=== PATIENT | female | born 1970 | race African-American/Black ===

== ENCOUNTER 2017-07-15 09:54 | Inpatient (IN) | payer BC ==
[2017-07-15] MEDS ORDERED: Nitroglycerin 0.4 MG TAB (25 Tab Bottle) SL PRN (12:18)
[2017-07-15] MEDS ORDERED: Bisacodyl 5 MG TAB PO PRN (12:18)
[2017-07-15] MEDS ORDERED: Ondansetron HCl/PF 4 MG/2 ML Vial IVP PRN (12:18)
[2017-07-15] MEDS ORDERED: hydrALAZINE 20 MG/ML VIAL SLOW IVP PRN (12:18)
[2017-07-15] MEDS ORDERED: Senokot 8.6 MG TAB PO PRN (12:18)
[2017-07-15] MEDS ORDERED: traMADol HCl 50 MG TAB PO PRN (12:18)
[2017-07-15] MEDS ORDERED: Mag-Al 1200 mg/1200 mg/30 ML UDCUP PO PRN (12:18)
[2017-07-15] MEDS ORDERED: Benzonatate 100 MG CAP PO PRN (12:18)
[2017-07-15] MEDS ORDERED: cloNIDine 0.1 MG TAB PO PRN (12:18)
[2017-07-15] MEDS ORDERED: Calcium Carbonate 500 MG ChewTAB PO PRN (12:18)
[2017-07-15 12:37] VITALS: BMI 45.7
[2017-07-15] MEDS: Sodium Chloride 0.9% 1,000 ML IV SCH (13:33)
[2017-07-15 13:35] LABS: Hemoglobin A1c 5.3 % (4.0-6.0)
[2017-07-15 13:56] LABS: Free T3 2.06 pg/mL (1.71-3.71)
--- NOTE | 2017-07-15 14:59 | HP ---
DATE OF ADMISSION: 07/15/2017 PRIMARY CARE PHYSICIAN: None. The patient does not have any insurance CHIEF COMPLAINT: Cough, fever, and shortness of breath. HISTORY OF PRESENT ILLNESS: Ms. Walters is a 47-year-old female with past medical history of hyperte nsion, dyslipidemia, and possible diabetes, who presented to the emergency room in [place] the a radha-mentioned complaints. History is mainly obtained by the patient herself. According to Ms. Walters, she was feeling fine up until 3 days ago. Three days ago, she started to h ave some sore throat, which resolved the next day and she felt better. Later that day, she actually got worse and started to have low grade fever, shortness of breath, chest tightness, and generalized malaise, and cough. Her symptoms did not get better at all yesterday, so she presented to the ER tod ay. Upon presentation, she was febrile with a fever of 101.4 and pulse of 135. Her Influenza testing was negative. She underwent a chest x-ray, which was concerning for some pneumonia. She also was found to have elevated D-dimer and for this reason, she underwent a CT angio, which confirmed the diagnosi s of goff-lobar pneumonia. She received azithromycin and Rocephin as well as 2 liters of IV fluids an d was transferred to our facility for further evaluation. Here, she was evaluated by our emergency r oom physician and is now being admitted for severe multifocal pneumonia. At the time of my examination, the patient is feeling somewhat better. Her family is at bedside. She denies any sick contacts. She denies any nausea, vomiting, and abdominal pain. She does have so me loose stools since yesterday. She has lost some weight as she has been trying through diet and ot her methods. She denies any orthopnea or PND. She denies any water retention. She denies any dysur ia, frequency, or urgency. She is currently off of all of her medications. She lost her insurance and has just gotten it back. PAST MEDICAL HISTORY: 1. Hypertension. 2. Dyslipidemia. 3. Iron deficiency anemia. PAST SURGICAL HISTORY: section x2. SOCIAL HISTORY: She is working two jobs currently. No history of drug, tobacco, or alcohol abuse. Lives with her family. FAMILY HISTORY: Significant for diabetes in both of her parents. One of her grandfathers had prosta te cancer. One of her grandmothers had stomach cancer as well as lymphoma and cervical cancer. One of her grandmothers had a heart attack at the age of 65. ALLERGIES: No known medication allergies. MEDICATIONS: No known home medication. REVIEW OF SYSTEMS: The following complete review of systems was negative, unless otherwise mentioned in the HPI or below: Constitutional: Weight loss or gain, ability to conduct usual activities. Skin: Rash, itching. Eyes: Double vision, pain. ENT/Mouth: Nose bleeding, neck stiffness, pain, tenderness. Cardiovascular: Palpitations, dyspnea on exertion, orthopnea. Respiratory: Shortness of breath, wheezing, cough, hemoptysis, fever or night sweats. Gastrointestinal: Poor appetite, abdominal pain, heartburn, nausea, vomiting, constipation, or diarrh ea. Genitourinary: Urgency, frequency, dysuria, nocturia. Musculoskeletal: Pain, swelling. Neurologic/Psychiatric: Anxiety, depression. Allergy/Immunologic: Skin rash, bleeding tendency. LABORATORY DATA: Reviewed from [place] [facility]. Her hemoglobin is 9.3 with hematocrit o f 29.7, low MCV and MCH. WBCs 8.8 with 91% neutrophils, platelet count of 206. D-dimer was 2.98. S nae chemistries show blood sugar of 134, bicarbonate 19, and lactic acid normal. Cardiac enzymes ar e within normal limits. Her TSH is low at 0.1123. Urinalysis is unremarkable. Chest x-ray showed m ulti-lobar pneumonia by my review without any evidence of significant effusion or pulmonary edema. C T angio is negative for any pulmonary embolism. A normal 12-lead EKG by my review shows sinus tachyc ardia without any specific ST or T-wave changes. PHYSICAL EXAMINATION: VITAL SIGNS: Include temperature 98.1, pulse of 109, respirations 19, saturating 98% on room air, bl ood pressure 134/100. Her temperature on presentation to [place] [facility] was 101.4 degre es. GENERAL: No acute distress, awake, alert, oriented x3, very pleasant. No respiratory distress. HEENT: Mucous membrane is moist and pink. No oropharyngeal exudate or erythema. Head is normocepha lic, atraumatic. Pupils equal, reactive to light and accommodation. Extraocular movements intact. NECK: Supple without any lymphadenopathy, JVD or bruit. CHEST: Clear to auscultation without any wheezing, rales, or rhonchi. Rate and rhythm is regular wi thout any murmur, rubs or gallops. ABDOMEN: Soft, nontender, nondistended with positive bowel sounds. EXTREMITIES: Free of any cyanosis, clubbing, or edema. NEUROLOGIC: Nonfocal. SKIN: Free of any rashes or bruises. Feels warm and dry to touch. PSYCHIATRIC: Normal affect. IMPRESSION AND PLAN: 1. Sepsis secondary to pneumonia. At this time, the patient will be admitted to telemetry unit, [facility] en her tachycardia. We will continue with the treatment for sepsis protocol with IV fluids and appro priate IV antibiotics for community-acquired pneumonia. Provide symptomatic and supportive care and monitor symptoms clinically. Blood cultures have been obtained at the outside emergency room and we will follow those. We will also send urinary legionella and pneumococcal antigens. 2. Pneumonia as #1. Continue to treat with IV antibiotics and follow up on the culture results. We will add nebulizers and supportive care in the form of Mucinex and antitussive as needed. 3. Low TSH, possible hyperthyroidism. We will check a free T3 and T4. She had one lab drawn in Jul of this year, which was normal. She is currently not on any medications. She has not had any t hyroid workup so far. 5. Iron deficiency anemia. We will check iron indices and transfuse IV iron if indicated. She has no active bleed going on. 6. Family history of diabetes. We will check hemoglobin A1c. Add insulin sliding scale for hypergl ycemia for now. 7. Health maintenance. Check lipid panel and hemoglobin A1c as above. 8. Deep venous thrombosis and gastrointestinal prophylaxis. 9. Symptomatic and supportive care and p.r.n. medications. DISPOSITION: Ms. Walters is currently being admitted for sepsis secondary to pneumonia. Further man agement will depend upon her clinical course. Estimated length of stay at this time is 2-3 midnight.
[2017-07-15] MEDS: Acetaminophen 325 MG TAB PO PRN (15:18)
[2017-07-15 18:12] LABS: LegU Control Bar Appear? YES (CONTROL BAR); LegionellaU Control Bkground? CLEAR/WHITE (CLR/WHITE); Strp pneuU Control Background? CLEAR/WHITE (CLR/WHITE); Strp pneumo Control Bar Appear YES (CONTROL BAR)
[2017-07-15] MEDS ORDERED: FLU VACC QS2017-18 36 mo. & older 0.5 ML SYRINGE IM ONE (21:00)
[2017-07-15] MEDS: Famotidine 20 MG TAB PO SCH (21:13)
[2017-07-15] MEDS: Diabetic Tussin 200 MG/10 ML UDCUP PO PRN (21:13)
[2017-07-16] MEDS: Sodium Chloride 0.9% 1,000 ML IV SCH ×2 (00:49→13:58)
[2017-07-16 05:29] LABS: #Eosinphils 0.1 thou/uL (0.0-0.7); #Lymphocytes 1.3 thou/uL (1.20-3.40); #Monocytes 0.4 thou/uL (0.11-0.59); #Neutrophils 6.2 thou/uL (1.40-6.50); %Eosinophils 1.7 % (0.0-10.0); %Monocytes 4.4 % (0.0-10.0); Hematocrit 26.4 % (36.0-47.0); Mean Platelet Volume 10.4 fL (7.4-10.4); Red Blood Cell (RBC) Count 3.37 mill/uL (4.20-5.40); White Blood Cell (WBC) Count 7.9 thou/uL (4.8-10.8)
[2017-07-16 05:59] LABS: Anion Gap 10 mmol/L (10-20); BUN (Urea Nitrogen) 7 mg/dL (7.0-18.7); Calc. Creatinine Clearance 212 mL/min (70-130); Calcium 8.7 mg/dL (7.8-10.44); Carbon Dioxide 23 mmol/L (22-29); Chloride 110 mmol/L (98-107); Estimated GFR-MDRD Greater than 90
[2017-07-16] MEDS: Acetaminophen 325 MG TAB PO PRN (07:43)
[2017-07-16] MEDS: Loratadine 10 MG TAB PO PRN (07:43)
[2017-07-16] MEDS: Diabetic Tussin 200 MG/10 ML UDCUP PO PRN ×2 (07:45→15:12)
[2017-07-16] MEDS: Famotidine 20 MG TAB PO SCH ×2 (08:57→20:48)
[2017-07-16] MEDS: Enoxaparin Sodium 40 MG/0.4 ML SYRINGE SC SCH (08:57)
[2017-07-16] MEDS ORDERED: IRON SUCROSE COMPLEX 100 MG/5 ML SLOW IVP SCH (09:15)
[2017-07-16] MEDS ORDERED: Iron Sucrose Complex 200 MG in Sodium Chloride 0.9% 250 ML 250 ML IVPB SCH (09:30)
[2017-07-16] MEDS: Metoprolol Tartrate 25 MG TAB PO SCH ×2 (09:53→20:48)
--- NOTE | 2017-07-16 12:35 | PDOC.PN ---
- Subjective Encounter Start Date: 07/16/17 Encounter Start Time: 12:33 Subjective: feels much better. walked in hallways w some RAPHAEL -: no chest pain/plapitations - Objective MAR Reviewed: Yes Vital Signs & Weight: Vital Signs (12 hours) Temp Pulse Resp BP BP Pulse Ox 07/16/17 11:00 98.3 F 79 18 142/80 H 98 07/16/17 08:00 98.6 F 107 H 18 07/16/17 04:00 98.6 F 107 H 18 188/97 H 93 L Weight Weight 267 lb 11.2 oz I&O: 07/15/17 07/16/17 07/17/17 06:59 06:59 06:59 Intake Total 3000 Output Total 640 Balance 2360 Result Diagrams: 07/16/17 04:44 07/16/17 04:44 Additional Labs: Microbiology 07/15/17 06:40 Nasal swab Influenza Types A,B Direct EIA - Final 01/17/13 Unknown Nasal swab MRSA Screen - Final Negative--No MRSA Colonization 07/15/17 06:50 Venous blood - Left Arm Blood Culture - Preliminary Specimen has been received and culture in progress. No Growth to date. Laboratory Tests 07/15/17 07/15/17 07/15/17 10:09 10:09 10:09 Hemoglobin A1c 5.3 Iron 11 L TIBC 328 % Saturation 3 L Triglycerides 29 Cholesterol 129 LDL Cholesterol, Calc 71 HDL Cholesterol 52 Free T4 1.08 Free T3 2.06 TSH 3rd Generation Ur L.pneumophila Ag Ur Strep pneumoniae Ag 07/15/17 07/15/17 07/15/17 10:14 17:45 17:45 Hemoglobin A1c Iron TIBC % Saturation Triglycerides Cholesterol LDL Cholesterol, Calc HDL Cholesterol Free T4 Free T3 TSH 3rd Generation 0.1123 L Ur L.pneumophila Ag Negative Ur Strep pneumoniae Ag NEGATIVE Phys Exam - Physical Examination Constitutional: NAD HEENT: PERRLA, moist MMs, sclera anicteric, oral pharynx no lesions Neck: no nodes, no JVD, supple, full ROM Respiratory: no wheezing, no rales, no rhonchi, clear to auscultation bilateral Cardiovascular: RRR, no significant murmur, no rub, gallop Gastrointestinal: soft, non-tender, no distention, positive bowel sounds Musculoskeletal: no edema, pulses present Neurological: non-focal, normal sensation, moves all 4 limbs Psychiatric: normal affect, A&O x 3 Skin: no rash Dx/Plan (1) Sepsis Code(s): A41.9 - SEPSIS, UNSPECIFIED ORGANISM Status: Acute (2) CAP (community acquired pneumonia) Code(s): J18.9 - PNEUMONIA, UNSPECIFIED ORGANISM Status: Acute (3) GLORIA (iron deficiency anemia) Code(s): D50.9 - IRON DEFICIENCY ANEMIA, UNSPECIFIED Status: Chronic Qualifiers: Iron deficiency anemia type: inadequate dietary iron intake Qualified Code( s): D50.8 - Other iron deficiency anemias (4) Sinus tachycardia Code(s): R00.0 - TACHYCARDIA, UNSPECIFIED Status: Acute (5) HTN (hypertension) Code(s): I10 - ESSENTIAL (PRIMARY) HYPERTENSION Status: Chronic Qualifiers: Hypertension type: essential hypertension Qualified Code(s): I10 - Essential (primary) hypertension Comment: Start Beta catie and titrate . (6) Obesity, morbid, BMI 40.0-49.9 Code(s): E66.01 - MORBID (SEVERE) OBESITY DUE TO EXCESS CALORIES Status: Chronic (7) Hypokalemia Code(s): E87.6 - HYPOKALEMIA Status: Acute Comment: replace and recheck - Plan continue antibiotics, PT/OT, social service manager, respiratory therapy, incentive spirometry, out of bed/ambulate, DVT proph w/lovenox IV iron today & then start PO FeSO4.no active bleed.nutritional deficiency -: check ECHO given persistant taycardia.likley d/t anemia.? LVH -: Hb A1c Ok-no DM.Free T3/T4 ok even though TSH low.No Rx for now.Op w/u -: cont IV ABx. follow blood Cx.clinically better. -: cont supportive care. IVF.Nebs,mucinex,IS.AM labs * . Review of Systems - Review of Systems Constitutional: weakness, malaise. negative: fever, chills, sweats, other ENT: negative: Ear Pain, Ear Discharge, Nose Pain, Nose Discharge, Nose Congestion, Mouth Pain, Mouth Swelling, Throat Pain, Throat Swelling, Other Respiratory: Cough, SOB with Excertion, Sputum. negative: Dry, Shortness of Breath, Hemoptysis, Pleuritic Pain, Wheezing Cardiovascular: negative: chest pain, palpitations, orthopnea, paroxysmal nocturnal dyspnea, edema, light headedness, other Gastrointestinal: negative: Nausea, Vomiting, Abdominal Pain, Diarrhea, Constipation, Melena, Hematochezia, Other Genitourinary: negative: Dysuria, Frequency, Incontinence, Hematuria, Retention , Other Musculoskeletal: negative: Neck Pain, Shoulder Pain, Arm Pain, Back Pain, Hand Pain, Leg Pain, Foot Pain, Other Neurological: negative: Weakness, Numbness, Incoordination, Change in Speech, Confusion, Seizures, Other - Medications/Allergies Allergies/Adverse Reactions: Allergies Allergy/AdvReac Type Severity Reaction Status Date / Time No Known Allergies Allergy Verified 01/17/13 23:46 Medications: Current Medications Acetaminophen (Tylenol) 650 mg PO Q4H PRN PRN Reason: Headache/Fever or Pain Last Admin: 07/16/17 07:43 Dose: 650 mg Hydrocodone Bitart/Acetaminophen (Lennox 5/325) 1 tab PO Q4H PRN PRN Reason: Moderate Pain (4-6) Al Hydroxide/Mg Hydroxide (Maalox) 30 ml PO Q6H PRN PRN Reason: Heartburn or Indigestion Albuterol/Ipratropium (Duoneb) 3 ml NEB [id number] PRN PRN Reason: SOB &/or Wheezing Benzonatate (Tessalon) 100 mg PO Q4H PRN PRN Reason: Cough Bisacodyl (Dulcolax) 10 mg PO DAILYPRN PRN PRN Reason: Constipation Calcium Carbonate (Tums) 1,000 mg PO Q4H PRN PRN Reason: Heartburn or Indigestion Clonidine (Catapres) 0.1 mg PO Q4H PRN PRN Reason: Systolic BP > 160 Enoxaparin Sodium (Lovenox) 40 mg SC 0900 [facility] Last Admin: 07/16/17 08:57 Dose: 40 mg Famotidine (Pepcid) 20 mg PO BID [facility] Last Admin: 07/16/17 08:57 Dose: 20 mg Ferrous Sulfate ([facility]osol) [facility] Guaifenesin (Robitussin Sf) 200 mg PO Q4H PRN PRN Reason: Cough Last Admin: 07/16/17 07:45 Dose: 200 mg Hydralazine HCl (Apresoline) 10 mg SLOW IVP Q4H PRN PRN Reason: Systolic BP > 170 Azithromycin 500 mg/ Sodium (Chloride) 250 mls @ 250 mls/hr IVPB Q24HR [facility] Ceftriaxone Sodium 2 gm/ (Sodium Chloride) 100 mls @ 200 mls/hr IVPB Q24HR [facility] Sodium Chloride (Normal Saline 0.9%) 1,000 mls @ 100 mls/hr IV .Q10H [facility] Last Admin: 07/16/17 00:49 Dose: 1,000 mls Iron Sucrose 200 mg/ Sodium (Chloride) 260 mls @ 65 mls/hr IVPB 0930 [facility] Stop: 07/16/17 13:29 Last Admin: 07/16/17 10:20 Dose: 260 mls Loratadine (Claritin) 10 mg PO DAILYPRN PRN PRN Reason: Sinus Symptoms Last Admin: 07/16/17 07:43 Dose: 10 mg Metoprolol Tartrate (Lopressor) 12.5 mg PO BID [facility] Last Admin: 07/16/17 09:53 Dose: 12.5 mg Nitroglycerin (Nitrostat) 0.4 mg SL Q5MIN PRN PRN Reason: Chest Pain Ondansetron HCl (Zofran) 4 mg IVP Q6H PRN PRN Reason: Nausea/Vomiting Senna (Senokot) 2 tab PO HSPRN PRN PRN Reason: Constipation Tramadol HCl (Ultram) 50 mg PO Q4H PRN PRN Reason: Moderate Pain (4-6)
[2017-07-16] MEDS: cefTRIAXone\\ROCEPHIN 2 GM in Sodium Chloride 0.9% 100 ML IVPB SCH (13:57)
[2017-07-16] MEDS: Azithromycin 500 MG in Sodium Chloride 0.9% 250 ML 250 ML IVPB SCH (15:01)
[2017-07-16] MEDS: Ferrous Sulfate 325 MG TAB PO SCH (16:58)
[2017-07-17] MEDS: Acetaminophen 325 MG TAB PO PRN (02:35)
[2017-07-17] MEDS: Sodium Chloride 0.9% 1,000 ML IV SCH ×3 (02:37→17:01)
[2017-07-17 05:24] LABS: Anion Gap 11 mmol/L (10-20); BUN (Urea Nitrogen) 8 mg/dL (7.0-18.7); Calc. Creatinine Clearance 222 mL/min (70-130); Calcium 8.5 mg/dL (7.8-10.44); Carbon Dioxide 21 mmol/L (22-29); Chloride 110 mmol/L (98-107); Estimated GFR-MDRD Greater than 90
[2017-07-17] MEDS: Ferrous Sulfate 325 MG TAB PO SCH ×2 (08:42→17:00)
[2017-07-17] MEDS: Famotidine 20 MG TAB PO SCH ×2 (08:42→21:36)
[2017-07-17] MEDS: Metoprolol Tartrate 25 MG TAB PO SCH ×2 (08:42→21:37)
[2017-07-17] MEDS: Enoxaparin Sodium 40 MG/0.4 ML SYRINGE SC SCH (08:43)
[2017-07-17] MEDS: Loratadine 10 MG TAB PO PRN (08:45)
[2017-07-17] MEDS: Diabetic Tussin 200 MG/10 ML UDCUP PO PRN ×2 (08:45→17:00)
[2017-07-17] MEDS: cefTRIAXone\\ROCEPHIN 2 GM in Sodium Chloride 0.9% 100 ML IVPB SCH (12:55)
--- NOTE | 2017-07-17 13:09 | PDOC.PN ---
- Subjective Encounter Start Date: 07/17/17 Encounter Start Time: 13:09 -: non-verbal, old records requested/rev Subjective: Pt seen and examined for Community acquired pneumonia, Iron Defeciency Anem -: Pt feels SOB on exertion, No fever , no N/V/D, no active bleeding - Objective MAR Reviewed: Yes Vital Signs & Weight: Vital Signs (12 hours) Temp Pulse Resp BP BP Pulse Ox 07/17/17 11:29 97.8 F 84 18 99 07/17/17 08:00 98.0 F 91 17 152/98 H 99 07/17/17 04:35 98.7 F 99 18 169/83 H 97 Weight Weight 266 lb 14.4 oz I&O: 07/16/17 07/17/17 07/18/17 06:59 06:59 06:59 Intake Total 3000 4214 Output Total 640 1000 Balance 2360 3214 Result Diagrams: 07/16/17 04:44 07/17/17 04:42 Radiology Reviewed by me: Yes Phys Exam - Physical Examination HEENT: PERRLA, moist MMs, sclera anicteric, TM's clear, oral pharynx no lesions , 2+ tonsils Neck: no nodes, no JVD, supple, full ROM Respiratory: no wheezing, no rales (few crackles left lower lobe), no rhonchi, wheezing present, clear to auscultation bilateral Cardiovascular: RRR, no significant murmur, no rub, gallop, irregular Gastrointestinal: soft, non-tender, no distention, positive bowel sounds Musculoskeletal: no edema, pulses present, edema present Neurological: non-focal, normal sensation, moves all 4 limbs Psychiatric: normal affect, A&O x 3 Skin: no rash, normal turgor, cap refill <2 seconds Dx/Plan (1) CAP (community acquired pneumonia) Code(s): J18.9 - PNEUMONIA, UNSPECIFIED ORGANISM Status: Acute (2) Hypokalemia Code(s): E87.6 - HYPOKALEMIA Status: Acute Comment: replace and recheck (3) Sepsis Code(s): A41.9 - SEPSIS, UNSPECIFIED ORGANISM Status: Acute (4) Sinus tachycardia Code(s): R00.0 - TACHYCARDIA, UNSPECIFIED Status: Acute (5) HTN (hypertension) Code(s): I10 - ESSENTIAL (PRIMARY) HYPERTENSION Status: Chronic Qualifiers: Hypertension type: essential hypertension Qualified Code(s): I10 - Essential (primary) hypertension Comment: Start Beta catie and titrate . (6) GLORIA (iron deficiency anemia) Code(s): D50.9 - IRON DEFICIENCY ANEMIA, UNSPECIFIED Status: Chronic Qualifiers: Iron deficiency anemia type: inadequate dietary iron intake Qualified Code( s): D50.8 - Other iron deficiency anemias (7) Obesity, morbid, BMI 40.0-49.9 Code(s): E66.01 - MORBID (SEVERE) OBESITY DUE TO EXCESS CALORIES Status: Chronic - Plan plan discussed w/ family, continue antibiotics, respiratory therapy, incentive spirometry, out of bed/ambulate, DVT proph w/lovenox 1) Community Acquired Pneumonia continue antibiotics, PT/OT, social services assistant, respiratory therapy, incentive spirometry, out of bed/ambulate, DVT proph w/ lovenox 2) Iron Defeciency Anemia, IV iron day #2 3)check ECHO given persistant taycardia.likley d/t anemia.? LVH 4) Hb A1c Ok-no DM.Free T3/T4 ok even though TSH low.No Rx for now.Op w/u 5) cont IV ABx. follow blood Cx.clinically better. 6) cont supportive care. IVF.Nebs,mucinex,IS.AM labs * .
[2017-07-17] MEDS: Azithromycin 500 MG in Sodium Chloride 0.9% 250 ML 250 ML IVPB SCH (14:29)
[2017-07-18] MEDS: HYDROcodone/Acetaminophen 5/325 mg Tablet PO PRN ×2 (00:22→09:08)
[2017-07-18] MEDS: Diabetic Tussin 200 MG/10 ML UDCUP PO PRN (00:22)
[2017-07-18] MEDS: Sodium Chloride 0.9% 1,000 ML IV SCH ×2 (00:28→15:20)
[2017-07-18] MEDS: Famotidine 20 MG TAB PO SCH (09:03)
[2017-07-18] MEDS: Metoprolol Tartrate 25 MG TAB PO SCH (09:03)
[2017-07-18] MEDS: Ferrous Sulfate 325 MG TAB PO SCH (09:03)
[2017-07-18] MEDS: Enoxaparin Sodium 40 MG/0.4 ML SYRINGE SC SCH (09:04)
[2017-07-18] MEDS ORDERED: Loratadine 10 MG TAB PO PRN (10:31)
[2017-07-18] MEDS ORDERED: Azithromycin 250 MG TAB PO SCH (11:45)
[2017-07-18 13:35] VITALS: BP 170/102; TEMP 98.4
[2017-07-18] MEDS ORDERED: Potassium Chloride 20 MEQ TAB PO SCH (13:45)
--- NOTE | 2017-07-18 14:05 | DIS ---
DATE OF ADMISSION: 07/15/2017 DATE OF DISCHARGE: 07/18/2017 ADMITTING DIAGNOSIS: 1. Community-acquired pneumonia. 2. Hypokalemia. 3. Hypertension. HOSPITAL COURSE: She is a 47-year-old woman with history of hypertension, hyperlipidemia. She came in because of short of breath and cough and sore throat with fever of 101 and pulse 135. His flu test was negative. Chest x- ray shows pneumonia. CAT scan and the CT angio was negative that shows Multilobar pneumonia. Patient was treated with IV Rocephin, Zithromax in the hospital stay and she improved. Hypokalemia. She continued hypokalemia during her stay, replaced with a high potassium. Anemia. She has iron deficient anemia. Hemoglobin was low, she got 2 IV transfusions iron and hemoglobin improved. Her hospital course, she was treated with IV antibiotics and she improved. VITAL SIGNS: Her discharge vital signs, pulse 77, blood pressure 144/80. _ PHYSICAL EXAMINATION: GENERAL: Alert, oriented. NECK: Supple, no JVD. She is anemic. CHEST: Chest has no murmurs, good breath sounds. CARDIOVASCULAR: Audible S4. ABDOMEN: Soft. EXTREMITIES: No pedal edema. LABORATORY: Shows hemoglobin 8.0, hematocrit 36.4, MCV 78, platelets 201. Sodium 139, potassium 3.1, chloride 110, carbon dioxide 11, BUN 8, creatinine 0.6, iron 11, saturation 3.0. TSH 0.1123. Her echocardiogram shows normal ejection fraction of 55-60%. Her discharge medications will be Omnicef 300 mg twice daily for 7 days, b.i.d. then Zithromax 500 mg every day for 3 days, metoprolol for blood pressure 25 b.i.d. and then clonidine 0.1 mg p.r.n. for blood pressure. and Kdur 20meq q day and BMP in one wek with pCP FINAL DIAGNOSES: 1. Community acquired pneumonia. 2. Hypokalemia. 3. Iron deficient anemia. PLAN: Discharge home. Follow up with PCP for further anemia workup. Instruction for the pneumonia and anemia was given to the patient. EWA
[2017-07-18 15:05] LABS: Anion Gap 13 mmol/L (10-20); BUN (Urea Nitrogen) 6 mg/dL (7.0-18.7); Calc. Creatinine Clearance 222 mL/min (70-130); Calcium 9.3 mg/dL (7.8-10.44); Carbon Dioxide 25 mmol/L (22-29); Chloride 104 mmol/L (98-107); Estimated GFR-MDRD Greater than 90
[2017-07-18] MEDS ORDERED: Cefdinir 300 MG CAP PO SCH (21:00)
[2017-07-19] MEDS ORDERED: Iron Polysaccharides Complex 150 MG CAP PO SCH (08:00)
== END 2017-07-18 14:15 | disposition home or self-care (01) | DRG 871 ==
LOC: ERS 09:54 → 2NO 10:23
PROVIDERS: ADMIT Internal Medicine; ATTEND Internal Medicine
DX: A41.9 Sepsis, unspecified organism (principal); J18.9 Pneumonia, unspecified organism; E66.01 Morbid (severe) obesity due to excess calories; E11.9 Type 2 diabetes mellitus without complications; E03.9 Hypothyroidism, unspecified; D50.9 Iron deficiency anemia, unspecified; Z68.42 Body mass index [BMI] 45.0-49.9, adult; E78.5 Hyperlipidemia, unspecified; I10 Essential (primary) hypertension; E87.6 Hypokalemia; Z83.3 Family history of diabetes mellitus; Z82.49 Family history of ischemic heart disease and other diseases of the circulatory system; Z80.42 Family history of malignant neoplasm of prostate; Z80.7 Family history of other malignant neoplasms of lymphoid, hematopoietic and related tissues; Z80.0 Family history of malignant neoplasm of digestive organs; Z80.49 Family history of malignant neoplasm of other genital organs
CPT/HCPCS: 36415; 80048; 80061; 83036; 83540; 83550; 84439; 84443; 84481; 85025; 87899; 90471; 90682; 93306; 94640; 96361; 96374; G0008; J0456; J0696; J1650; J1756; J7050; J7620; Q2036

== ENCOUNTER 2018-07-12 00:06 | Inpatient (IN) | payer BC ==
[2018-07-12 01:40] LABS: CKMB 0.8 ng/mL (0-6.6)
[2018-07-12 02:54] VITALS: BMI 45.1
[2018-07-12] MEDS ORDERED: Aspirin 325 mg Enteric Coated Tablet PO SCH (03:15)
[2018-07-12] MEDS ORDERED: Furosemide 40 MG/4 ML VIAL SLOW IVP SCH ×2 (03:15→13:45)
[2018-07-12 03:56] LABS: Troponin I 0.045 ng/mL (< 0.028)
[2018-07-12] MEDS ORDERED: cloNIDine 0.1 MG TAB PO PRN (05:19)
--- NOTE | 2018-07-12 06:39 | HP ---
CHIEF COMPLAINT: Shortness of breath. HISTORY OF PRESENT ILLNESS: This patient is a 48-year-old female who presented initially to [facility] with complaints of wheezing and shortness of breath. The patient was subsequently transferred here. The patient reports that for the last several days, she has had increasing dyspnea on exertion and shortness of breath. She had slight heaviness in her chest, but no real chest pain. She reports the symptoms are similar to an episode she had a year ago, at which time she was admitted here with a diagnosis of pneumonia. The patient was using some inhalers at home, but was not having any substantial improvement with that. The patient had a workup there which included equivocal troponin. She was also noted to have a blood pressure of 229/107 initially in the emergency department there. Her chest x-ray showed bilateral airspace disease with infection versus edema. The patient was given azithromycin and Rocephin. She was given 80 mg of IV Lasix and nitroglycerin transdermal. The patient was subsequently transferred to this facility where CT angio showed bilateral airspace disease again consistent with either diffuse infection or edema. At the time of my exam, the patient reports that she is feeling substantially better and breathing more comfortably. She denies any fevers or chills. No cough. No sputum production. She denies any significant peripheral edema, although she reports occasionally she does have a bit of that. 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 The patient does report she has had very heavy periods for the last several months. She has anemia, hyperlipidemia, and eczema. PAST SURGICAL HISTORY: x2. FAMILY HISTORY: Diabetes and cancer in both sides of her family. SOCIAL HISTORY: Nonsmoker, nondrinker, nondrug user. She is single. She is full code, and her mother would be her surrogate decision maker should that be necessary. PRIMARY CARE PHYSICIAN: Dr. Escamilla in [place]. ALLERGIES: NONE. HOME MEDICATIONS: 1. Clonidine 0.1 q.4 p.r.n. 2. Potassium 20 mEq daily. 3. Lopressor 12.5 mg p.o. b.i.d. 4. Ferrous sulfate 325 p.o. b.i.d. PHYSICAL EXAMINATION: VITAL SIGNS: Temperature 97.8, pulse 98, respirations 14, O2 saturation 99% on room air, BP 115/67. GENERAL APPEARANCE: Age-appropriate female, in no distress. She is awake, alert, oriented, pleasant, and cooperative. HEENT: PERRL. No OP lesions. NECK: Supple and symmetric without JVD or carotid bruits. HEART: Regular with no rubs. There is a murmur at the left lower sternal border, 2/6. LUNGS: Clear to auscultation bilaterally with good chest wall expansion and air exchange. No wheezes or rales are noted presently. ABDOMEN: Soft, nontender, and nondistended. Positive bowel sounds. No masses. No organomegaly. EXTREMITIES: Warm and dry with no edema. NEUROLOGIC: The patient moves all extremities spontaneously. There is no evidence of focal deficits. PSYCHIATRIC: The patient has normal affect and behavior. LABORATORY DATA: White count 13.7, hemoglobin 7.5, MCV is 70.9, platelets 263. D-dimer 1.73. Sodium 137, potassium 4.1, chloride 106, CO2 of 20, BUN is 8, creatinine is 0.65, glucose 104, lactic acid 1.4, calcium 9.1, AST 12, ALT 15. Troponin 0.043, subsequently 0.064. Albumin 3.9. Chest x-ray and CT as stated above. IMPRESSION AND PLAN: 1. Pulmonary edema. The patient presented with shortness of breath, worsening over several days with evidence of pulmonary edema on chest x-ray and CT of the chest. CTA was negative for pulmonary embolus. The patient has responded well to lowering her blood pressure and use of diuretics. We will repeat an echocardiogram as she does have a history of moderate to severe tricuspid regurgitation. She also has a history of normal ejection fraction. 2. Hypertensive urgency. The patient's blood pressure was significantly elevated, likely contributing to her pulmonary edema and failure. She responded to treatment in the emergency department. Her blood pressure is substantially better at this time. We will resume her usual home medications and continue to monitor. 3. Severe anemia. The patient has microcytic anemia and a history of some iron deficiency, taking iron supplementation, appears that this is related to her menstrual cycles and she has CHILD PSYCHOLOGY TEACHER that she can follow up with. She is not in a point that would require transfusion, although she could be having some high-output failure related to the anemia. Job ID: [id number]
[2018-07-12 06:45] LABS: Troponin I 0.059 ng/mL (< 0.028)
--- NOTE | 2018-07-12 08:14 | RAD ---
PORTABLE CHEST ONE VIEW: 07/12/2018 6:14 a.m. HISTORY: Pulmonary edema. COMPARISON: 07/11/2018 FINDINGS: The heart size is borderline. Bilateral perihilar air space disease is again seen. No pneumothorace s or large effusions are identified. IMPRESSION: Stable examination. POS: OFF
[2018-07-12] MEDS: Ferrous Sulfate 325 MG TAB PO SCH ×2 (08:19→17:52)
[2018-07-12] MEDS ORDERED: Metoprolol Tartrate 25 MG TAB PO SCH (09:00)
[2018-07-12] MEDS ORDERED: Potassium Chloride 20 MEQ TAB PO SCH ×2 (09:00→13:45)
[2018-07-12 09:48] LABS: Iron 11 ug/dL (50-170); Iron Binding Capacity, Total 341 mcg/dL (265-497)
[2018-07-12] MEDS ORDERED: Spironolactone 25 MG TAB PO SCH (14:00)
--- NOTE | 2018-07-12 14:47 | PDOC.PN ---
- Subjective Encounter Start Date: 07/12/18 Encounter Start Time: 14:39 Subjective: Feeling better, breathing better - Objective Resuscitation Status - Order Detail: 07/12/18 05:18 Resuscitation Status Routine Resuscitation Status: FULL: Full Resuscitation Discussed with: Shelbie MONET Reviewed: Yes Vital Signs & Weight: Vital Signs (12 hours) Temp Pulse Resp BP Pulse Ox 07/12/18 12:05 95 20 159/95 H 97 07/12/18 07:12 97 F L 95 22 H 133/78 96 07/12/18 05:18 99 07/12/18 02:50 97.8 F 98 14 111/65 99 Weight Weight 263 lb Phys Exam - Physical Examination obese HEENT: PERRLA, moist MMs, sclera anicteric, TM's clear, oral pharynx no lesions , 2+ tonsils Neck: no nodes, no JVD, supple, full ROM Respiratory: no wheezing, no rales, clear to auscultation bilateral Cardiovascular: RRR, no significant murmur Gastrointestinal: soft, non-tender, no distention, positive bowel sounds Musculoskeletal: edema present Neurological: non-focal, normal sensation, moves all 4 limbs Psychiatric: normal affect, A&O x 3 Dx/Plan (1) Uncontrolled hypertension Code(s): I10 - ESSENTIAL (PRIMARY) HYPERTENSION Status: Acute Comment: BP BETTER CONTROLLED NOW, Continue home medications and Clonidine PRN. Echo shows preserved EF and mild TR. (2) GLORIA (iron deficiency anemia) Code(s): D50.9 - IRON DEFICIENCY ANEMIA, UNSPECIFIED Status: Chronic Qualifiers: Iron deficiency anemia type: other iron deficiency Qualified Code(s): D50.8 - Other iron deficiency anemias Comment: Chronic blood loss and iron deficiency. Low iron stores, continue PO Iron and requesy IV iron (3) Obesity, morbid, BMI 40.0-49.9 Code(s): E66.01 - MORBID (SEVERE) OBESITY DUE TO EXCESS CALORIES Status: Chronic Comment: Patient non complaint with diet - Plan cont current plan of care, PT/OT, DVT proph w/lovenox * .
[2018-07-12] MEDS ORDERED: Iron, Sodium Ferric Gluconate 250 MG in Sodium Chloride 0.9% 100 ML IVPB SCH ×2 (15:00→21:00)
[2018-07-12] MEDS: Iron, Sodium Ferric Gluconate 250 MG in Sodium Chloride 0.9% 100 ML IVPB SCH (17:51)
[2018-07-12] MEDS: Carvedilol 6.25 MG TAB PO SCH (17:51)
--- NOTE | 2018-07-12 20:35 | CON ---
DATE OF CONSULTATION: 07/12/2018 CARDIOLOGY CONSULTATION REASON FOR CONSULTATION: Congestive heart failure, diastolic hypertension, and severe anemia. HISTORY OF PRESENT ILLNESS: Ms. Cindy Walters is a very pleasant 48-year-old woman. She presented to the hospital with difficulty breathing. Chest x-ray showed pulmonary vascular congestion and she was hypertensive. She received diuretics with an excellent response, feeling much better now. She had no chest pain or pressure. The patient had a blood pressure of 229/107 initially in the emergency room. She was given antibiotics and 80 mg of Lasix IV. PAST MEDICAL HISTORY: 1. History of hypertension. 2. Anemia, secondary to heavy menstruation. 3. Iron deficiency despite oral iron. 4. She had history of heart catheterization 5 years ago, normal. PAST SURGICAL HISTORY: section. FAMILY HISTORY: Diabetes and cancer. SOCIAL HISTORY: Nonsmoker, nondrinker, nondrug. She is single. ALLERGIES: SHE IS ALLERGIC TO ASHU INHIBITORS. SHE HAD LIP SWELLING AND SOME THROAT TIGHTNESS WITH LISINOPRIL. HOME MEDICATIONS: 1. Clonidine 0.1 mg every 4 hours as needed. 2. Potassium 20 mEq a day. 3. Lopressor 12.5 mg twice a day. 4. Iron 325 mg twice a day. PHYSICAL EXAMINATION: GENERAL: This is a delightful 48-year-old woman, in no distress. VITAL SIGNS: Her blood pressure 150/95, pulse 95, regular. HEENT: Eyes, sclerae nonicteric. Mouth, mucous membranes moist. NECK: Supple. No lymphadenopathy. LUNGS: Clear. No wheezing, rales, or rhonchi. CARDIAC: Normal S1, normal S2. There is a 1-2/6 mid systolic murmur at left upper sternal border. No diastolic murmur. No S3. ABDOMEN: Obese, nontender. No hepatosplenomegaly. EXTREMITIES: No clubbing or cyanosis. No significant edema. SKIN: Warm and dry. Peripheral pulses are normal in the feet. PERTINENT LABORATORY: Her hemoglobin 7.5. Her ferritin level is 37, percent saturation 3%, and iron level 11. EKG sinus rhythm with left ventricular hypertrophy. Echocardiogram shows normal ejection fraction of 65% to 70%. Mild left ventricular hypertrophy. Mild tricuspid insufficiency. Other laboratory; BNP 181.3. ASSESSMENT: 1. Congestive heart failure, diastolic, acute, likely on chronic related to hypertension and anemia. 2. Iron deficiency anemia, apparently related to heavy menstruation. Iron deficient despite oral iron. 3. Allergic to ASHU inhibitors with lip swelling and some throat tightness. 4. Hypertension. PLAN: 1. Change from metoprolol to carvedilol. 2. Add spironolactone and furosemide. 3. Give her intravenous iron. 4. If the mensuration continues to be very heavy, consideration for possible hysterectomy could be given. 5. We would monitor basic metabolic profile here in the hospital. I will be out for the next few days, my partners will be here to see the patient. Job ID: [id number]
[2018-07-13] MEDS ORDERED: Benzonatate 100 MG CAP PO PRN (00:28)
[2018-07-13 05:34] LABS: Anion Gap 12 mmol/L (10-20); BUN (Urea Nitrogen) 13 mg/dL (7.0-18.7); Calc. Creatinine Clearance 193 mL/min (70-130); Calcium 9.1 mg/dL (7.8-10.44); Carbon Dioxide 25 mmol/L (22-29); Chloride 103 mmol/L (98-107); Estimated GFR-MDRD Greater than 90; Glucose 95 mg/dL (70-105); Potassium 3.5 mmol/L (3.5-5.1); Sodium 136 mmol/L (136-145)
[2018-07-13] MEDS: Iron, Sodium Ferric Gluconate 250 MG in Sodium Chloride 0.9% 100 ML IVPB SCH (06:00)
[2018-07-13 07:43] VITALS: TEMP 98.9
[2018-07-13] MEDS ORDERED: Spironolactone 25 MG TAB PO SCH (08:00)
[2018-07-13] MEDS: Carvedilol 6.25 MG TAB PO SCH (08:53)
[2018-07-13] MEDS: Ferrous Sulfate 325 MG TAB PO SCH (08:53)
[2018-07-13] MEDS ORDERED: Furosemide 20 MG TAB PO SCH (09:00)
[2018-07-13] MEDS ORDERED: Potassium Chloride 10 MEQ TAB PO SCH (09:00)
[2018-07-13 11:37] VITALS: BP 139/94
--- NOTE | 2018-07-14 01:09 | DIS ---
DATE OF ADMISSION: 07/12/2018 DATE OF DISCHARGE: 07/13/2018 ADMISSION DIAGNOSES: 1. Hypertension. 2. Hypertensive urgency. 3. Congestive heart failure exacerbation. 4. Severe iron-deficiency anemia. 5. Chronic blood-loss anemia. 6. Morbid obesity. DISCHARGE DIAGNOSES: 1. Hypertension. 2. Hypertensive urgency. 3. Congestive heart failure exacerbation. 4. Severe iron-deficiency anemia. 5. Chronic blood-loss anemia. 6. Morbid obesity. HISTORY OF PRESENTING ILLNESS: This is a 48-year-old female who presented to the ER with complaints of shortness of breath and chest discomfort. The patient's blood pressure was treated in the ER and she was given IV Lasix and after diuresis, the patient started feeling significantly better. The patient's home medication of metoprolol was changed to carvedilol and spironolactone, was added to Lasix. The patient also was treated with IV iron x2 for her low iron storage and also the low iron content and her hemoglobin was 7.3. After this patient started feeling much better, she was discharged for outpatient followup. The patient also was advised to follow up with her [facility] and primary care physician for her complaints of menorrhagia. DISCHARGE MEDICATIONS: 1. Carvedilol 12.5 mg p.o. b.i.d. 2. Clonidine 0.1 mg q.4 hours as needed. 3. Furosemide 20 mg p.o. daily. 4. Spironolactone 25 mg p.o. daily. 5. Ferrous sulfate 325 mg p.o. b.i.d. 6. Potassium chloride 20 mEq p.o. daily. DISCHARGE INSTRUCTIONS: 1. Please take medications as outlined. 2. Follow up with all your physicians. 3. Activity as tolerated. 4. Please follow a strict heart-healthy, low-calorie diet, exercise, and try to lose weight. 5. Please follow up with her [facility] for menorrhagia. Job ID: [id number]
== END 2018-07-13 14:57 | disposition home or self-care (01) | DRG 292 ==
LOC: ERS 00:06 → 2NO 01:09
PROVIDERS: ADMIT Internal Medicine; ATTEND Internal Medicine
DX: I11.0 Hypertensive heart disease with heart failure (principal); Z68.42 Body mass index [BMI] 45.0-49.9, adult; I50.33 Acute on chronic diastolic (congestive) heart failure; E66.01 Morbid (severe) obesity due to excess calories; E78.5 Hyperlipidemia, unspecified; D50.0 Iron deficiency anemia secondary to blood loss (chronic); I16.0 Hypertensive urgency; Z87.01 Personal history of pneumonia (recurrent); Z79.899 Other long term (current) drug therapy
CPT/HCPCS: 36415; 71045; 80048; 82553; 82728; 83540; 83550; 83880; 84484; 90471; 90686; 93005; 93306; G0008; J1940; J2916; J7050